=== PATIENT | female | born 1945 | race Caucasian/White ===

== ENCOUNTER 2016-06-30 11:32 | Day surgery (SDC) | payer MEDICARE ==
[2016-06-27 20:27] LABS: BASOPHILS 0.3 %; BASOPHILS ABSOLUTE 0.03 10/3/uL (0.0-0.16); EOSINOPHILS 3.2 %; EOSINOPHILS ABSOLUTE 0.35 10/3/uL (0.0-0.53); HEMOGLOBIN 12.8 g/dL (12.0-16.0); IMMATURE GRANULOCYTES 0.2 %; IMMATURE GRANULOCYTES ABSOLUTE 0.02 10/3/uL (0.0-0.11); LYMPHOCYTES 28.1 %; LYMPHOCYTES ABSOLUTE 3.06 10/3/uL (0.67-4.30); MEAN CORPUSCULAR HEMOGLOB 28.1 pg (26.0-34.0); MEAN CORPUSCULAR VOLUME 87.9 fL (80-100); MEAN PLATELET VOLUME 11.9 fL (9.2-13.0); MONOCYTES 4.6 %; NEUTROPHILS 63.6 %; NEUTROPHILS ABSOLUTE 6.94 10/3/uL (2.02-8.40); PLATELET COUNT 296 10/3/uL (150-400); RBC DISTRIBUTION WIDTH 13.7 % (12.0-16.0); RED CELL COUNT 4.56 10/6/uL (4.0-5.6); WHITE BLOOD CELLS 10.9 10/3/uL (4.5-10.5)
[2016-06-27 20:29] LABS: HEMATOCRIT 40.1 % (36.0-48.0); MANUAL DIFF NO %; MEAN CORPUS HGB CONC 31.9 g/dL (32.0-36.0)
[2016-06-27 20:52] LABS: ALBUMIN 3.7 G/DL (3.5-5.0); ALKALINE PHOSPHATASE 142 U/L (45-117); BUN (BLOOD UREA NITROGEN) 15 MG/DL (6-23); CALCIUM, SERUM 9.6 MG/DL (8.5-10.4); CHLORIDE, SERUM 104 MMOL/L (96-112); CO2 (CARBON DIOXIDE) 28 MMOL/L (24-34); CREATININE 0.96 MG/DL (0.55-1.02); GFR AFRICAN AMERICAN 69 ML/MIN (>=60); GFR NON AFRICAN AMERICAN 60 ML/MIN (>=60); GLOBULIN 3.7 G/DL (2.5-4.1); GLUCOSE, SERUM 150 MG/DL (60-99); POTASSIUM, SERUM 4.1 MMOL/L (3.5-5.3); SGOT(AST) 18 U/L (5-40); SGPT(ALT) 22 U/L (5-65); SODIUM, SERUM 142 MMOL/L (135-148); TOTAL BILIRUBIN 0.3 MG/DL (0-1.2); TOTAL PROTEIN 7.4 G/DL (6.0-8.5)
--- NOTE | ~2016-06-30 | OP ---
Record Of Operation [facility] [address] [place]. [address] NAME: HORACE SEN : 43 STATUS : [facility]#: [id number] AGE: 70 ADM/REG DATE : 06/30/16 MR#: [id number] REPORT SERV DATE: 06/30/16 DICTATED BY: DARRYL NAPOLES DATE: 06/30/16 REPORT STATUS : Draft TRANSCRIBED BY: MODSeverino DATE: 06/30/16 DATE OF PROCEDURE: 06/30/2016 PROCEDURE: A L1 kyphoplasty with fluoroscopic guidance. DIAGNOSES: 1. Osteoporosis. 2. Osteoporotic L1 compression fracture. 3. Severe lumbalgia refractory to conservative measures. ANESTHESIA: General. PREPROCEDURAL ANTIBIOTICS: None. INTERIM HISTORY: Noncontributory. The patient has been off blood thinners x7 days. COMPLICATIONS: None. FLUIDS: Approximately 700 mL per anesthesia associates. BLOOD LOSS: Less than 10 mL. CONSENT: Informed consent was given and a signed informed consent document was obtained. A full description of the procedure was provided including benefits as well as possible complications. OPERATIVE PROCEDURE: The patient was brought to the operating room, placed on the exam table on chest rolls in a comfortable prone position after being endotracheally intubated per the anesthesia team. The operative field was prepped with Hibiclens, followed by ChloraPrep and a surgical film and draped in sterile fashion. A plain surgical film was used as the patient does note a questionable history to shellfish. Local anesthesia both superficial and deep was provided by local infiltration of a total of approximately 10 mL of a 50:50 mixture of 1% lidocaine and 0.5% Marcaine with epinephrine. Deep anesthesia to the level of the pedicles was performed using a 22-gauge, 3.5 inch spinal needle and this also allowed corroboration of the correct level between AP and lateral fluoroscopy during the case. The patient's MRI, nuclear medicine bone scan, and x-rays were reviewed prior to the case. I had initially contemplated doing the L1 and L4 levels, but there was no evidence of edema at the L4 level on her MRI, and no evidence of nuclear medicine uptake at the L4 level on her bone scan. Therefore, just the L1 level was undertaken. Two C-arms were then used throughout the procedure in biplanar fashion and radiographs were made. Attention was focused on the L1 vertebrae. Using 15 blade scalpel, a small skin rent was made in the skin just lateral to the right pedicle under AP view. A size 2 (Express) trocar was then mounted to the right pedicle just past the posterior margin vertebral body using multiple radiographic views under AP and lateral projections. The Kyphon biopsy device was then cored under continuous live fluoroscopy until reaching the junction of the Record Of Operation [address] [address] NAME: HORACE SEN : 43 STATUS : [facility]#: [id number] AGE: 70 ADM/REG DATE : 06/30/16 MR#: [id number] REPORT SERV DATE: 06/30/16 DICTATED BY: DARRYL NAPOLES DATE: 06/30/16 REPORT STATUS : Draft TRANSCRIBED BY: MAKAYLA DATE: 06/30/16 anterior one third and posterior two thirds of the vertebral body under lateral projection. The biopsy device was near to the midline on the AP view. The same procedure was then proceeded on the left side. Two Kyphon inflatable balloon tamps were then placed through the introducers and filled with contrast to a pressure of approximately 200 to 300 PSI and radiographs revealed excellent intraosseous cavity formation within the area of fracture on x-ray and MRI on AP and lateral projections. The balloon tamps were then deflated and removed and a total of 6 mL of polymethylmethacrylate (PMMA) was pushed through the introducers after being mixed and given time to harden. This was done under continuous live fluoroscopy. The patient tolerated this well, and radiographs revealed excellent intraosseous bone cement interdigitation without evidence of extravasation. All needles, introducers, and other percutaneous equipment were removed. The skin nicks were then cleansed and dressed. The patient tolerated the procedure well, and there were no complications. She was taken to the recovery area in good condition. She will be provided with postprocedural instructions and will also be provided with contact information and instructed to call regarding any concerning symptoms or questions. IMPRESSION: 1. Successful kyphoplasty at the L1 level. 2. A bone biopsy was taken from the L1 level, leftward entry. I was unable to take a bone biopsy from the right side due to the decreased bone density of the pathologic bone secondary to the fracture. 3. Radiographs were taken with details as noted above. LSR/MODL Darryl Napoles M.D. / [id number] CC: Dave Huynh M.D.
[~2016-06-30 11:32] MED LIST: ACET500CAP PO; ADVIL 100100 MG/5 M PO; ASAB PO; ATEN25 PO; ATEN50 PO; COUMADIN4 MG; CRESTOR20 MG PO; DIL2TAB PO; FLEX PO; GLUCOPHAGE1000 MG PO; HYDROCHLOROT25 MG PO; LIPITOR40 PO; MEVACOR PO; MULTIPLE VIT PO; PAXIL40 MG PO; PEP20 PO; TAMOXIFEN20 M1 PO; ULTRAM50 PO; VITAMIN D31000 UNIT PO
== END 2016-06-30 18:10 | disposition home or self-care (01) ==
LOC: SDC 11:32
PROVIDERS: Emergency Medicine Sports Medicine
PROC: 0QU03JZ Supplement Lumbar Vertebra with Synthetic Substitute, Percutaneous Approach (ICD-10-PCS; 2016-06-30)
PROC: 0QB03ZX Excision of Lumbar Vertebra, Percutaneous Approach, Diagnostic (ICD-10-PCS; 2016-06-30)
PROC: 0QS03ZZ Reposition Lumbar Vertebra, Percutaneous Approach (ICD-10-PCS; principal; 2016-06-30 12:45)
DX: M48.56XA Collapsed vertebra, not elsewhere classified, lumbar region, initial encounter for fracture (principal); M81.0 Age-related osteoporosis without current pathological fracture; M54.5 Low back pain; I10 Essential (primary) hypertension; E11.9 Type 2 diabetes mellitus without complications; E78.00 Pure hypercholesterolemia, unspecified; K21.9 Gastro-esophageal reflux disease without esophagitis; F41.9 Anxiety disorder, unspecified; F32.9 Major depressive disorder, single episode, unspecified; M19.90 Unspecified osteoarthritis, unspecified site; Z85.3 Personal history of malignant neoplasm of breast; Z87.891 Personal history of nicotine dependence; Z88.0 Allergy status to penicillin; Z88.1 Allergy status to other antibiotic agents; Z88.2 Allergy status to sulfonamides; Z88.5 Allergy status to narcotic agent; Z88.8 Allergy status to other drugs, medicaments and biological substances; Z79.84 Long term (current) use of oral hypoglycemic drugs; Z79.899 Other long term (current) drug therapy; Z96.641 Presence of right artificial hip joint; Z96.1 Presence of intraocular lens; Z98.41 Cataract extraction status, right eye; Z98.42 Cataract extraction status, left eye; Z90.49 Acquired absence of other specified parts of digestive tract; Z90.89 Acquired absence of other organs; Z90.12 Acquired absence of left breast and nipple; Z98.890 Other specified postprocedural states
CPT/HCPCS: 36415; 80053; 82962; 85025; 88307; 88311; 93005; A9270-GY; C1726; J2250; J2405; J2710; J3010; Q9967